=== PATIENT | male | born 1965 | race African-American/Black ===

== ENCOUNTER 2024-01-14 16:43 | Emergency (ER) | payer OTHER ==
[2024-01-14 17:05] VITALS: BP 112/67; PULSE 60; RESP 18; TEMP 98.3; BMI 29.1
[2024-01-14] MEDS ORDERED: METHOCARBAMOL 500 MG TABLET ONE (18:49)
[2024-01-14] MEDS ORDERED: predniSONE 20 MG TABLET (UD) ONE (18:50)
[2024-01-14] MEDS ORDERED: ACETAMINOPHEN 500 MG TABLET (FP) ONE (18:50)
[2024-01-14] MEDS ORDERED: KETOROLAC TROMETHAMINE 30 MG/1 ML VIAL ONE (18:50)
[2024-01-14] MEDS ORDERED: LIDOCAINE 4% PATCH TP ONE (18:50)
[2024-01-14] MEDS: KETOROLAC TROMETHAMINE 30 MG/1 ML VIAL IM ONE (18:58)
[2024-01-14] MEDS: ACETAMINOPHEN 500 MG TABLET (FP) PO ONE (18:58)
[2024-01-14] MEDS: LIDOCAINE 4% PATCH TP ONE (18:59)
[2024-01-14] MEDS: METHOCARBAMOL 500 MG TABLET PO ONE (18:59)
[2024-01-14] MEDS: predniSONE 20 MG TABLET (UD) PO ONE (18:59)
[2024-01-14] MEDS ORDERED: LIDOCAINE PATCH REMOVAL MC SCH (22:00)
== END 2024-01-14 20:20 | disposition home or self-care (01) ==
LOC: JER 16:43
PROC: 3E0133Z Introduction of Anti-inflammatory into Subcutaneous Tissue, Percutaneous Approach (ICD-10-PCS; principal; 2024-01-14)
DX: M54.41 Lumbago with sciatica, right side (principal)
CPT/HCPCS: 99284-25

== ENCOUNTER 2024-04-19 04:30 | Day surgery (SDC) | payer OTHER ==
[2024-04-13 12:48] VITALS: BMI 29.7
[2024-04-19] MEDS ORDERED: ACETAMINOPHEN 500 MG TABLET (FP) PO PRN (08:53)
[2024-04-19] MEDS: LIDOCAINE HCL 1% PRESERVATIVE FREE - 30ML VIAL IJ ONE ×2 (13:21)
[2024-04-19] MEDS: IOHEXOL 180 MG/1 ML ML IJ ONE ×2 (13:24)
[2024-04-19] MEDS: DEXAMETHASONE SOD PHOSPHATE 10 MG/1 ML VIAL IM ONE ×2 (13:24)
[2024-04-19 13:34] VITALS: BP 138/81; PULSE 67; RESP 16; TEMP 97.7
== END 2024-04-19 13:42 | disposition home or self-care (01) ==
LOC: JASU-SURG 04:30
PROVIDERS: ATTEND Pain Medicine Pain Medicine
PROC: 3E0R3BZ Introduction of Anesthetic Agent into Spinal Canal, Percutaneous Approach (ICD-10-PCS; 2024-04-19)
PROC: 3E0R33Z Introduction of Anti-inflammatory into Spinal Canal, Percutaneous Approach (ICD-10-PCS; principal; 2024-04-19 14:00)
DX: M54.16 Radiculopathy, lumbar region (principal)
CPT/HCPCS: 76000-TC-FY; J1100